=== PATIENT | female | born 1955 | race Caucasian/White ===

== ENCOUNTER → 2016-12-27 | Day surgery (SDC) | payer OTHER ==
[~2016-12-27] MED LIST: ACETTAB PO; ALLE10TA PO; AMLO5TAB2 PO; ASCO500T PO; BIOTCAP PO; CELE200C PO; DULA0.5I SQ; KETOROLAC TROMETHAMINE 30 MG/ML (IVP) VIAL IV PUSH ONE; LIPI40TA PO; LOSA100T3 PO; MEPERIDINE HCL 25 MG/ML VIAL IV ONE; MULTTAB67 PO; NEXI40CA PO; PROPOFOL 200 MG/20 ML AMP IV ONE; SODIUM CHLORIDE 0.9% 10 ML VIAL ONE; TOPR25TA PO; TRAM50TA PO; VENL150C39 PO
--- NOTE | 2016-12-29 05:58 | M6 ---
cc: AURA JEAN BAPTISTE M.D. DATE: 12/27/2016 DATE OF : 1955 PROCEDURE Fluoroscopically guided injection neurolytic substance of the right sacroiliac joint and then (3% phenol). History and physical was completed and signed. Consent was signed. Procedure site was marked. Medications were listed and reconciled. Pain score was recorded. Allergies were noted. Time out was taken. Fluoroscopy time was recorded where applicable. Sedation was administered or directed by Dr. Jean Baptiste. The patient was given oxygen. The patient was monitored by a registered nurse. Total procedure time was greater than 15 minutes. IV was started, blood pressure cuff, pulse oximeter and EKG were applied. The patient was placed in the prone position on a Willi table sedated with small amounts of propofol titrated to effect. Vital signs were monitored and remained stable throughout the procedure. The lumbar area and sacral area was prepped with alcohol and 10% Betadine solution and draped with sterile drapes. Fluoroscopy was used shooting from medial to lateral to clearly visualize the posterior joint line of the right sacroiliac joint. A sterile 5-inch 22-gauge spinal needle was advanced into the joint under fluoroscopic guidance. There was negative aspiration for blood or any other type of fluid and the patient was given 2 mL of 3% phenol. Following this the patient was taken to the recovery room with stable vital signs neurologically intact. W. MD LIBERTY Borja/dorcas /9:25 AM /5:47 AM
== END | disposition home or self-care (01) ==
LOC: PHSDC 07:23
PROVIDERS: ATTEND Pain Medicine Interventional Pain Medicine
DX: M54.5 Low back pain (principal); I10 Essential (primary) hypertension; E11.9 Type 2 diabetes mellitus without complications; Z85.828 Personal history of other malignant neoplasm of skin; Z88.5 Allergy status to narcotic agent; Z88.2 Allergy status to sulfonamides; Z88.0 Allergy status to penicillin
CPT/HCPCS: 64640; 99152; J1885; J2175